=== PATIENT | female | born 1985 | race Caucasian/White ===

== ENCOUNTER 2021-11-25 06:40 | Day surgery (SDC) | payer MEDICAID, SELFPAY ==
[~2021-11-25] VITALS: Ht 157.5 cm; Wt 57.6 kg
[2021-11-25 08:03] LABS: HCG,QUAL RESULT NEGATIVE (NEGATIVE)
[2021-11-25] MEDS ORDERED: MEPERIDINE 100 MG INJ. 100 MG/ML VIAL ONE (08:37)
[2021-11-25] MEDS ORDERED: MIDAZOLAM HCL 5 MG/5 ML VIAL ONE (08:38)
[2021-11-25 14:33] VITALS: BP_SYST 102
== END 2021-11-25 10:10 | disposition home or self-care (01) ==
LOC: SDS 06:40 → SMU 06:40 → SDS 10:10
PROVIDERS: ATTEND Internal Medicine Gastroenterology
DX: R10.12 Left upper quadrant pain (principal); K29.80 Duodenitis without bleeding; K29.50 Unspecified chronic gastritis without bleeding; Z79.899 Other long term (current) drug therapy; Z20.822 Contact with and (suspected) exposure to COVID-19
CPT/HCPCS: 36415; 43239; 84703; 87081; 87426; 88305; 88312; 88313; 99152; G0378; J2175; J2250; U0003